=== PATIENT | male | born 1990 | race Caucasian/White ===

== ENCOUNTER 2022-02-23 17:07 | Emergency (ER) | payer BC ==
[~2022-02-23] VITALS: Ht 167.6 cm; Wt 74.8 kg
[2022-02-23] MEDS ORDERED: PREDNISOLONE ACE5 ML OP (17:32)
[2022-02-23] MEDS ORDERED: TALTZ AUTO80 MG/1 ML SQ (17:32)
== END 2022-02-23 21:22 | disposition home or self-care (01) ==
LOC: ER 17:07
DX: K61.1 Rectal abscess (principal); Z87.2 Personal history of diseases of the skin and subcutaneous tissue; L40.9 Psoriasis, unspecified